=== PATIENT | female | born 1980 | race African-American/Black ===

== ENCOUNTER 2022-10-09 20:00 | Emergency (ER) | payer BC, SELFPAY ==
[2022-10-09 21:13] VITALS: BP 121/87; PULSE 82; RESP 20; TEMP 36.9; O2SAT 98; BMI 40.4
--- NOTE | 2022-10-09 23:15 | ED_ITS ---
HPI - General Adult General Time Seen by Provider: 23:20 Date Seen: 10/09/22 Chief complaint: Cough Stated complaint: Covid+ Time Seen by Provider: 10/09/22 23:14 Source: patient and RN notes reviewed Mode of arrival: ambulatory Limitations: no limitations History of Present Illness HPI narrative: Patient is a 42-year-old female with diabetes, early stage kidney disease coming in with COVID positive test early at home today. On , , started feeling achy and not feeling well after putting lights up outside and watching the [employer] game. Monday, the next day, took a COVID test was negative. Has been coughing, has had low-grade fevers, has had some headaches, sore throat. No nausea vomiting or diarrhea. Noted she has lost taste and smell. She is coughing but no shortness of breath, no chest pain. No history of DVTs. She is interested in COVID treatment, specifically Paxlovid. Have reviewed with her the drug interactions with Paxlovid. She is on Januvia, glipizide, metformin, lisinopril, atorvastatin, omeprazole, iron and aspirin. She is able to pull up her kidney functions from clinic and she had a creatinine of 1.2 with an estimated GFR of [address] in [address] would [address] this patient on the dose reduction schedule based on this. Related Data Previous Rx's Medication Instructions Recorded nirmatrelvir 150 mg-ritonavir 100 See Rx Instructions PO .COMPLEX 10/09/22 mg tablets in a dose pack (EUA) #20 ea (Paxlovid) Review of Systems Status of ROS: Reports: 6 or more systems reviewed and unremarkable except as noted in History and below Exam Const: Vital Signs, click to edit/add: Vital Signs - 24 hr 10/09/22 21:13 Temperature 98.4 F Pulse Rate [Pulse Oximeter] 82 Respiratory Rate 20 Blood Pressure [Ri ght Upper Arm] 121/87 Pulse Oximetry 98 Oxygen Delivery Me thod Room Air Documenting provider has reviewed patient's vital signs: yes Common normals: no apparent distress, average body habitus, oriented x3, no limitations, healthy appearing and alert General appearance: cooperative, comfortable, well kempt and well developed Other: Has an occasional cough during the interaction. Pulse oximetry mostly 99% when I am in the room with her talking to her. HENMT: Common normals: normocephalic, head/scalp atraumatic, hearing grossly normal bilaterally, TM's normal bilaterally, external nose normal, nasal mucous membranes and turbinates normal, moist oral mucous membranes, oropharynx normal and dentition normal Head and scalp: normocephalic and atraumatic Nose: external nose normal and nasal mucous membranes and turbinates normal Tympanic membrane: TM's normal bilaterally Eye: Common normals: PERRL, EOMs intact bilaterally, conjunctivae normal and no scleral icterus Conjunctiva: conjunctiva(e) normal Pupil: PERRL Neck & C-Spine: Common normals: full ROM, no lymphadenopathy, supple, no meningeal signs and no JVD Resp: Common normals: normal respiratory effort, no retractions, no use of accessory muscles and clear to auscultation bilaterally Auscultation: clear to auscultation bilaterally Cardio: Common normals: no JVD, regular rate, regular rhythm, S1 normal heart sound, S2 normal heart sound, no gallops, no clicks and no murmurs Rate: regular rate Rhythm: regular rhythm Heart sounds: S1 normal and S2 normal GI: Common normals: Normal to inspection, nondistended, normoactive bowel sounds present, soft to palpation, non-tender and no hepatosplenomegaly Palpation: soft and no hepatosplenomegaly Neuro: Common normals: oriented x3 Sensorium/orientation: alert Meningeal signs: no meningeal signs Psych: Appearance: well kempt Course Course Hospital Course: Will put her medicines through the [facility] COVID interaction tray checker. Discussed when we would do laboratory evaluation, chest x-ray info, further labs, at this time she really is stable, not hypoxic. I agree with getting her started on treatment for COVID. She agrees, declines any further workup which I think is appropriate at this time. We do not have the medicine here but if she get started on it tomorrow that should be sufficient. Tomorrow evening gordillo the end of her 5 day window to start this. Vital Signs Vital signs: Initial Vital Signs Temperature 98.4 F 10/09/22 21:13 Temperature Source Temporal Artery Scan 10/09/22 21:13 Pulse Rate 82 10/09/22 21:13 Pulse Rhythm 10/09/22 21:13 Respiratory Rate 20 10/09/22 21:13 Blood Pressure 121/87 10/09/22 21:13 Blood Pressure Mean 98 10/09/22 21:13 Pulse Oximetry 98 10/09/22 21:13 Oxygen Delivery Method 10/09/22 21:13 Vital Signs Temperature 98.4 F 10/09/22 21:13 Pulse Rate 82 10/09/22 21:13 Respiratory Rate 20 10/09/22 21:13 Blood Pressure 121/87 10/09/22 21:13 Pulse Oximetry 98 10/09/22 21:13 Oxygen Delivery Method 10/09/22 21:13 Temperature 98.4 F 10/09/22 21:13 Pulse Rate 82 10/09/22 21:13 Respiratory Rate 20 10/09/22 21:13 Blood Pressure 121/87 10/09/22 21:13 Pulse Oximetry 98 10/09/22 21:13 Oxygen Delivery Method 10/09/22 21:13 Critical Care Time Critical Care Time Critical Care Time: No Discharge Plan Discharge Clinical Impression: COVID-19 Patient Disposition: Home, Self-Care Condition: Stable Instructions: COVID-19 (Coronavirus Disease 2019) (ED), COVID-19 and Chronic Health Conditions (ED) Additional Instructions: Start Paxlovid as soon as possible tomorrow, this is a time dependent medicine and your window of opportunity ends tomorrow. Follow handout, try to ambulate or be mobile frequently throughout the day to help your lungs aerate. If you develop increasing fevers, worsening respiratory symptoms or associated chest pain/difficulty breathing/shortness of breath, have other concerns, do need to be re-evaluated. Hopefully this medicine will help diminish her symptoms and decrease your course of illness. All of your medicines besides the atorvastatin are fine to stay on. You need to go off the atorvastatin while your are on the Paxlovid and started 3 days after you are done this using this medicine. Need to quarantine per CDC guidelines. Activity Level: Activity as Tolerated Discharge Diet: Diabetic Prescriptions: New Paxlovid (EUA) 150-100 mg tablets,dose pack See Rx Instructions .ROUTE .COMPLEX Qty: 20 0RF Rx Instructions: orally per package directions Stand Alone Forms: [employer] Info Instructions
== END 2022-10-10 01:01 | disposition home or self-care (01) ==
PROVIDERS: Emergency Provider Family Medicine
DX: U07.1 COVID-19 (principal)
CPT/HCPCS: 99283; 99284

== ENCOUNTER 2024-05-08 20:08 | Emergency (ER) | payer OTHER, SELFPAY ==
[2024-05-08 20:22] VITALS: BP 127/85; PULSE 104; RESP 16; TEMP 36.1; O2SAT 99; BMI 42.0
[2024-05-08] MEDS: 0.9 % SODIUM CHLORIDE 1000 ml 1,000 ML IV (21:10)
[2024-05-08] MEDS: ONDANSETRON 2 MG/ML inj 4 MG IVP (21:11)
--- NOTE | 2024-05-08 21:21 | ED_ITS ---
HPI - General Adult General Chief complaint: Nausea/Vomiting Stated complaint: vomiting all day Time Seen by Provider: 05/08/24 21:01 History of Present Illness HPI narrative: began feeling ill on Monday. Monday started vomiting. Pt reports gallbladder removed and hysterectomy. Pt reports bilateral, middle abd pain . Pt not able to keep liquid or solids down. No meds taken at home due to vomiting. 43-year-old woman presenting to the emergency department with concern of v omiting and abdominal pain. Started to have some nausea beginning wall maybe 2 days ago and then vomiting over the last 24 hours has just been persisting and then developing some mid abdominal cramping pain. Has not had a fever. Three weeks ago did initiate treatment with semaglutide for diabetes. She has not had exposure to any particular illnesses. No concerning food ingestions. Just can not keep anything down at this point. No hematemesis. No diarrhea. No rashes. She has had cholecystectomy as well as hysterectomy. No dysuria noted. Related Data Previous Rx's ?Medication ?Instructions ?Recorded nirmatrelvir 150 mg-ritonavir 100 See Rx Instructions PO .COMPLEX 10/09/22 mg tablets in a dose pack #20 ea (Paxlovid) hyoscyamine sulfate 0.125 mg 0.125 - 0.25 mg (1 - 2 x 0.125 mg) 05/09/24 disintegrating tablet PO QID PRN abdominal cramping #20 tabs Allergies Allergy/AdvReac Type Severity Reaction Status Date / Time No Known Drug Allergies Allergy Verified 05/08/24 20:25 Review of Systems Status of ROS: Reports: 6 or more systems reviewed and unremarkable except as noted in History and below [facility] Social History Smoking Status: Never smoker How often do you have a drink containing alcohol: never AUDIT-C Alcohol total score: 0 Non-prescribed substance use: denies use Exam Narrative: Exam Narrative: pleasant. Looks exhausted. Clearly does not feel well. Lungs are clear. She is not tachypneic. Heart in a regular rhythm but just tachycardic. No murmur rub or gallop identified. Abdomen present bowel sounds. Diffusely tender but more so mid abdomen and suprapubic abdomen. Overweight. No masses appreciated. No flank pain. Oropharynx is a little sticky. No erythema. Extremities are well perfused. Is without edema. Const: Vital Signs, click to edit/add: Vital Signs - 24 hr 05/08/24 20:22 Temperature 97.0 F L Pulse Rate [Left P ulse Oximeter] 104 H Respiratory Rate 16 Blood Pressure [Ri ght Upper Arm] 127/85 Pulse Oximetry 99 Oxygen Delivery Me thod Room Air Documenting provider has reviewed patient's vital signs: yes Course Vital Signs Vital signs: Initial Vital Signs Temperature 97.0 F L 05/08/24 20:22 Temperature Source Temporal Artery Scan 05/08/24 20:22 Pulse Rate 104 H 05/08/24 20:22 Pulse Rhythm Regular 05/08/24 20:22 Respiratory Rate 16 05/08/24 20:22 Blood Pressure 127/85 05/08/24 20:22 Blood Pressure Mean 99 05/08/24 20:22 Blood Pressure Position Sitting 05/08/24 20:22 Pulse Oximetry 99 05/08/24 20:22 Oxygen Delivery Method Room Air 05/08/24 20:22 Vital Signs Temperature 97.0 F L 05/08/24 20:22 Pulse Rate 104 H 05/08/24 20:22 Respiratory Rate 16 05/08/24 20:22 Blood Pressure 127/85 05/08/24 20:22 Pulse Oximetry 99 05/08/24 20:22 Oxygen Delivery Method Room Air 05/08/24 20:22 Temperature 97.0 F L 05/08/24 20:22 Pulse Rate 104 H 05/08/24 20:22 Respiratory Rate 16 05/08/24 20:22 Blood Pressure 127/85 05/08/24 20:22 Pulse Oximetry 99 05/08/24 20:22 Oxygen Delivery Method Room Air 05/08/24 20:22 Medications Administered Medications: Discontinued Medications Generic Name Dose Route Start Last Admin Trade Name Freq PRN Reason Stop Dose Admin Diazepam 2.5 mg 05/08/24 22:54 05/08/24 23:33 Diazepam 5 Mg/Ml Inj IV 05/08/24 22:55 2.5 mg ONCE ONE Administration Hydromorphone HCl 0.5 mg 05/09/24 01:05 05/09/24 01:15 Hydromorphone 0.5 Mg/0.5 Ml Inj IVP 05/09/24 01:06 0.5 mg ONCE ONE Administration Hyoscyamine 0.25 mg 05/08/24 21:52 05/08/24 22:12 Hyoscyamine Sulfate 0.125 Mg Tab SUBLINGUAL 05/08/24 21:53 0.25 mg ONCE ONE Administration Sodium Chloride 1,000 mls @ 1,000 mls/hr 05/08/24 21:32 05/08/24 22:15 0.9 % Sodium Chloride 1000 Ml IV 05/08/24 22:31 Infused .Q1H ONE Infusion Lactated Ringer's 1,000 mls @ 1,000 mls/hr 05/08/24 22:45 05/08/24 23:00 Lactated Ringers 1000 Ml IV 05/08/24 23:44 1,000 mls/hr .Q1H ONE Administration Morphine Sulfate 4 mg 05/08/24 21:52 05/08/24 22:15 Morphine 4 Mg/Ml Inj IVP 05/08/24 21:53 4 mg ONCE ONE Administration Ondansetron HCl 4 mg 05/08/24 21:01 05/08/24 21:11 Ondansetron 2 Mg/Ml Inj IVP 05/08/24 21:02 4 mg ONCE ONE Administration Promethazine HCl 12.5 mg 05/08/24 22:54 05/08/24 23:33 Promethazine 25 Mg/Ml Inj IVP 05/08/24 22:55 12.5 mg ONCE ONE Administration Medical Decision Making [facility] Narrative Medical decision making narrative: Certainly could be infectious etiology to what appears to be gastritis. Possible med reaction as well with some of otitis mentioned. There were no recent dosing adjustments however. Pancreatitis remains in differential. Does not appear to have symptoms consistent with urinary tract infection otherwise that have exacerbated. Will give IV hydration antiemetics and some pain management. Check labs to direct further cares I think. Labs are notable for normal lipase and transaminases. CRP is not elevated. Lactate is normal. Normal white count is reassuring as well. Seems/infectious more reactive. CO2 slightly depressed and mildly elevated anion gap Received 2 L of fluid initially normal saline and then a L of LR. Re-examine the abdomen is improved but refining still operator in areas as mentioned above. Discussed potential imaging though with normal labs I think can defer. Furthermore later she recalls H pylori being found with similar episodes and had not initially noted that has had episodes of vomiting that have been as intense as this before. Her preference is to return home at this point. Will do oral challenge and reassess. She has tolerated and diluted apple juice at this point. See patient discharge plan further discussion Lab Data Lab results reviewed: Yes I reviewed the patient's lab results Labs: Lab Results 05/08/24 05/08/24 Range/Units 20:46 21:32 WBC 7.39 (4.50-11.00) K/uL RBC 5.10 (4.00-5.20) m/uL Hgb 12.7 (12.0-16.0) gm/dL Hct 40.0 (33.0-51.0) % MCV 78 L (80-100) fL MCH 25 L (26-34) pg MCHC 32 (32-36) gm/dL RDW Coeff of Hung 13.4 (11.5-15.5) % Plt Count 226 (140-440) K/uL Neut % (Auto) 87.5 H (42.0-72.0) % Lymph % (Auto) 11.0 L (20-44) % [place] % (Auto) 1.4 (0.0-11.0) % Eos % (Auto) 0.0 (0.0-7.0) % Baso % (Auto) 0.0 (0.0-3.0) % Neut # (Auto) 6.50 (1.7-7.0) K/uL Lymph # (Auto) 0.80 L (0.90-2.90) K/uL [place] # (Auto) 0.10 (0.00-0.90) K/UL Eos # (Auto) 0.00 (0.00-0.50) K/uL Baso # (Auto) 0.00 (0.00-0.30) K/uL Abs Immat Gran (auto) 0.01 (0.00-0.30) K/uL Imm/Tot Granulo (auto) 0.1 % Sodium 136 (135-149) mmol/L Potassium 4.4 (3.6-5.1) mmol/L Chloride 102 (96-114) mmol/L Carbon Dioxide 16 L (20-32) mmol/L Anion Gap 18 H (7-15) mEq/L BUN 23 (5-24) mg/dL Creatinine 1.3 (0.5-1.5) mg/dL Estimated Creat Clear 51.16 Estimated GFR 52 ml/min Glucose 179 H (60-115) mg/dL Lactate 1.3 (0.5-1.9) mmol/L Calcium 9.4 (8.4-10.6) mg/dL Magnesium 1.8 (1.5-2.6) mg/dL Total Bilirubin 0.6 (0.1-1.5) mg/dL Direct Bilirubin 0.5 (0.0-0.5) mg/dL AST 26 (12-35) U/L ALT 17 (4-35) U/L Alkaline Phosphatase 79 (40-150) U/L C-Reactive Protein < 0.5 L (0.5-1.0) mg/dL Total Protein 8.4 H (6.0-8.3) g/dL Albumin 5.4 H (3.3-5.0) g/dL Lipase 144 (23-300) U/L SARS-CoV-2 (PCR) Negative SARS-CoV-2 (Negative) Influenza Type A (PCR) Negative PCR FLU A (Negative) Influenza Type B (PCR) Negative PCR FLU B (Negative) Discharge Plan Discharge Clinical Impression: Vomiting, Dehydration, Abdominal pain Patient Disposition: Home w/ Parent or Adult Condition: Improved Additional Instructions: Focus on hydration. Slow advance of diet over the next 36 hours. Diluted juices, soup broths, rice, crackers, toast. Zofran and [place] from [employer]. Sending in hyoscyamine also for abdominal cramping The intensity of your symptoms may have been related to your semaglutide medication. Might discuss further with your primary care provider. Be seen for persistent vomiting, worsening/uncontrolled abdominal pain, associated fever. Prescriptions: New hyoscyamine sulfate 0.125 mg tablet,disintegrating 0.125 - 0.25 mg PO QID PRN (Reason: abdominal cramping) Qty: 20 0RF No Action Paxlovid 150-100 mg tablets,dose pack See Rx Instructions .ROUTE .COMPLEX Qty: 20 0RF Rx Instructions: orally per package directions Follow Up/Referrals: Provider,Not a Local [Primary Care Provider] - Stand Alone Forms: [employer] Info Instructions
[2024-05-08 21:58] LABS: Albumin* 5.4 g/dL (3.3-5.0); Chloride* 102 mmol/L (96-114); Lactate* 1.3 mmol/L (0.5-1.9)
[2024-05-08 21:59] LABS: Potassium* 4.4 mmol/L (3.6-5.1); Sodium* 136 mmol/L (135-149)
[2024-05-08 22:01] LABS: Creatinine* 1.3 mg/dL (0.5-1.5); Est. Creatinine Clearance* 51.16; Estimated Glomerular Filt Rate 52 ml/min
[2024-05-08 22:02] LABS: Alanine Aminotransferase* 17 U/L (4-35); Alkaline Phosphatase* 79 U/L (40-150); Anion Gap 18 mEq/L (7-15); Aspartate Amino Transferase* 26 U/L (12-35); Bilirubin Direct* 0.5 mg/dL (0.0-0.5); Bilirubin Total* 0.6 mg/dL (0.1-1.5); Blood Urea Nitrogen* 23 mg/dL (5-24); Calcium* 9.4 mg/dL (8.4-10.6); Carbon Dioxide* 16 mmol/L (20-32); Glucose* 179 mg/dL (60-115); Lipase* 144 U/L (23-300); Total Protein* 8.4 g/dL (6.0-8.3)
[2024-05-08 22:03] LABS: Magnesium* 1.8 mg/dL (1.5-2.6)
[2024-05-08 22:10] LABS: C Reactive Protein* < 0.5 mg/dL (0.5-1.0)
[2024-05-08 22:11] LABS: Hemoglobin* 12.7 gm/dL (12.0-16.0); Immature Granulocytes Abs Auto 0.01 K/uL (0.00-0.30); Immature Granulocytes Pct Auto 0.1 %; Mean Corpuscular HGB Conc 32 gm/dL (32-36); Mean Corpuscular Hemoglobin 25 pg (26-34); Mean Corpuscular Volume 78 fL (80-100); Monocytes Percent Auto 1.4 % (0.0-11.0); Neutrophils Percent Auto 87.5 % (42.0-72.0); Platelet Count* 226 K/uL (140-440); RDW Coefficient of Variation % 13.4 % (11.5-15.5); White Blood Count* 7.39 K/uL (4.50-11.00)
[2024-05-08 22:12] LABS: Slide Review Reflex No
[2024-05-08] MEDS: HYOSCYAMINE SULFATE 0.125 MG TAB 0.25 MG SUBLINGUAL (22:12)
[2024-05-08] MEDS: MORPHINE 4 MG/ML INJ IVP (22:15)
[2024-05-08 22:22] LABS: PCR FLU A Negative PCR FLU A (Negative); PCR FLU B Negative PCR FLU B (Negative); SARS PCR* Negative SARS-CoV-2 (Negative)
[2024-05-08] MEDS: LACTATED RINGERS 1000 ML 1,000 ML IV (23:00)
[2024-05-08] MEDS: PROMETHAZINE 25 MG/ML INJ 12.5 MG IVP (23:33)
[2024-05-08] MEDS: diazePAM 5 MG/ML inj 2.5 MG IV (23:33)
[2024-05-08 23:46] VITALS: BP 126/76; PULSE 90; O2SAT 94
[2024-05-08 23:47] VITALS: PULSE 89; O2SAT 94
[2024-05-09] VITALS (9 sets, daily range): BP systolic 121–125; BP diastolic 75–98; PULSE 87–93; O2SAT 94–100
[2024-05-09] MEDS: HYDROmorphone 0.5 mg/0.5 ml inj IVP (01:15)
== END 2024-05-09 01:41 | disposition home or self-care (01) ==
PROVIDERS: Emergency Provider Family Medicine
DX: E86.0 Dehydration (principal); R10.9 Unspecified abdominal pain
CPT/HCPCS: 36415; 80048; 80076; 81001; 83605; 83690; 83735; 85025; 86140; 87631; 96374; 96375; 99283; 99284; A9270; J1170; J2270; J2405; J2550; J3360; J7030; J7120